=== PATIENT | male | born 1980 | race Caucasian/White ===

== ENCOUNTER 2025-02-23 11:39 | Emergency (ER) | payer OTHER, SELFPAY ==
[2025-02-23 11:42] VITALS: BP 165/101; PULSE 74; RESP 18; TEMP 37.2; O2SAT 96; BMI 35.7
--- NOTE | 2025-02-23 11:56 | CRLHL7_ITS ---
For Patients: As a result of the Century Cures Act, medical imaging exams and procedure reports are released immediately into your electronic medical record. You may view this report before your referring provider. If you have questions, please contact your health care provider. Indication: Leg pain Technique: Four radiographs of the right tibia and fibula. Comparison: None. Impression: : Acute comminuted traumatic fracture of the distal 1/3 shaft of the fibula with a posteriorly displaced butterfly fragment component. The tibia appears intact. Dictated by Melquiades Preciado MD @ 02/23/2025 12:44:27 PM (Electronically Signed)
--- NOTE | 2025-02-23 11:56 | ED_ITS ---
HPI - General Adult General Chief complaint: Extremity Pain/Injury, Lower Stated complaint: R ankle injury Time Seen by Provider: 02/23/25 11:52 Source: patient Mode of arrival: wheelchair Limitations: no limitations History of Present Illness HPI narrative: 44-year-old male presenting today with right leg pain. Patient was working out in the field and he was hit from the right side by a tractor digital media sales consultant. The lawnmower caught him on the side of the leg and he rolled to the ground. He is having a hard time walking it putting pressure on that leg. Pain is located just proximal to the ankle. Denies pain anywhere else or other injury. Related Data Home Medications ?Medication ?Instructions ?Recorded ?Confirmed No Known Home Medications 02/23/2502/14 Allergies Allergy/AdvReac Type Severity Reaction Status Date / Time Penicillins Allergy Unknown Verified 02/23/25 11:51 Review of Systems Status of ROS: Reports: 6 or more systems reviewed and unremarkable except as noted in History and below Exam Narrative: Exam Narrative: Well-nourished well-developed patient in no acute distress. Alert and oriented. Answers questions appropriately. Mood and affect are appropriate. Extremities: Patient has swelling over the lateral distal lower extremity, including some swelling over the lateral malleolus. He has no tenderness over the lateral malleolus and has no significant tenderness with movement of the ankle. The foot is entirely normal. He has acute tenderness with palpation over the lateral lower extremity. No tenderness over the calf. Normal DP and PT pulses. Const: Vital Signs, click to edit/add: Vital Signs - 24 hr 02/23/25 11:42 Temperature 99 F Pulse Rate [Right Pulse Oximeter] 74 Respiratory Rate 18 Blood Pressure [Ri ght Upper Arm] 165/101 H Pulse Oximetry 96 Oxygen Delivery Me thod Room Air Course Course ED Course: Proceeded with x-rays of the lower extremity. X-ray, read by me, shows a displaced fibular fracture. Discussed with Sherrie Bauman - will place in a stirrup splint, weight-bearing as tolerated, follow-up with orthopedics next week. Vital Signs Vital signs: Initial Vital Signs Temperature 99 F 02/23/25 11:42 Temperature Source Temporal Artery Scan 02/23/25 11:42 Pulse Rate 74 02/23/25 11:42 Pulse Rhythm Regular 02/23/25 11:42 Pulse Strength 3+ Normal 02/23/25 11:42 Respiratory Rate 18 02/23/25 11:42 Blood Pressure 165/101 H 02/23/25 11:42 Blood Pressure Mean 122 H 02/23/25 11:42 Blood Pressure Position Sitting 02/23/25 11:42 Pulse Oximetry 96 02/23/25 11:42 Oxygen Delivery Method Room Air 02/23/25 11:42 Vital Signs Temperature 99 F 02/23/25 11:42 Pulse Rate 74 02/23/25 11:42 Respiratory Rate 18 02/23/25 11:42 Blood Pressure 165/101 H 02/23/25 11:42 Pulse Oximetry 96 02/23/25 11:42 Oxygen Delivery Method Room Air 02/23/25 11:42 Temperature 99 F 02/23/25 11:42 Pulse Rate 74 02/23/25 11:42 Respiratory Rate 18 02/23/25 11:42 Blood Pressure 165/101 H 02/23/25 11:42 Pulse Oximetry 96 02/23/25 11:42 Oxygen Delivery Method Room Air 02/23/25 11:42 Medical Decision Making MDM Narrative Medical decision making narrative: 44-year-old male status post blunt trauma to the lower extremity causing a fibul ar fracture. Splinted per above. Imaging Data Tib-fib x-ray: Attestation: I have reviewed the pertinent imaging results. Radiologist's impression: Technique: Four radiographs of the right tibia and fibula. Comparison: None. Impression: : Acute comminuted traumatic fracture of the distal 1/3 shaft of the fibula with a posteriorly displaced butterfly fragment component. The tibia appears intact. Discharge Plan Discharge Clinical Impression: Fibula fracture Patient Disposition: Home, Self-Care Condition: Stable Additional Instructions: Weight-bearing as tolerated. Use crutches as needed. Pain medication prescribed-take as needed. Do not operate heavy machinery if you take this pain medication. Wear splint at all times. Follow up appointment is scheduled at the [facility] on 02/27 at 9:00am. Please arrive at 8:50am to complete paperwork. If you have any questions, please call [phone]. [facility] [place] [address] Eight tablets of [place] sent to [facility] Prescriptions: No Action No Known Home Medications Stand Alone Forms: [facility] Info Instructions
== END 2025-02-23 13:07 | disposition home or self-care (01) ==
PROVIDERS: Emergency Provider Family Medicine
DX: S82.831A Other fracture of upper and lower end of right fibula, initial encounter for closed fracture (principal); W28.XXXA Contact with powered lawn mower, initial encounter
CPT/HCPCS: 29515; 73590; 99283; 99284